=== PATIENT | female | born 1970 | race Caucasian/White ===

== ENCOUNTER 2024-07-16 07:36 | Emergency (ER) | payer OTHER, SELFPAY ==
[2024-07-16 07:42] VITALS: BP 121/84; PULSE 91; TEMP 36.6; O2SAT 100; BMI 23.8
[2024-07-16] MEDS: 0.9 % SODIUM CHLORIDE 1,000 ML 1000 ML IV (08:04)
[2024-07-16] MEDS: KETOROLAC TROMETHAMINE 30 MG/ML VIAL IVP (08:05)
[2024-07-16] MEDS: ONDANSETRON PF 4 MG/2 ML VIAL IV (08:05)
[2024-07-16 08:07] LABS: Basophils Percent Auto 0.6 % (0.2-2.0); Eosinophils Absolute Auto 0.1 10^3/uL (0.0-0.7); Eosinophils Percent Auto 1.9 % (0.9-7.0); Hematocrit 40.6 % (36.0-48.0); Hemoglobin 13.8 g/dL (12.0-16.0); Lymphocytes Absolute Auto 2.3 10^3/uL (1.2-3.8); Lymphocytes Percent Auto 47.8 % (20.5-60.0); Mean Corpuscular Hemoglobin 30.7 pg (26.7-34.0); Mean Corpuscular Volume 90.2 fL (81.0-99.0); Mean Platelet Volume 9.7 fL (9.5-13.5); Monocytes Absolute Auto 0.4 10^3/uL (0.3-0.8); Monocytes Percent Auto 9.3 % (1.7-12.0); Neutrophils Absolute Auto 1.9 10^3/uL (1.4-6.5); Neutrophils Percent Auto 40.4 % (43.0-75.0); Platelet Count 227 10^3/uL (150-450); Red Cell Distribution Width 12.1 % (11.0-15.0); White Blood Count 4.7 10^3/uL (4.0-11.0)
[2024-07-16] MEDS: IPRATROPIUM/ALBUTEROL SULFATE 3 ML AMPUL.NEB IH (08:15)
[2024-07-16 08:28] LABS: Alanine Aminotransferase 17 U/L (14-59); Albumin Level 3.5 g/dL (3.4-5.0); Alkaline Phosphatase 80 U/L (46-116); Aspartate Amino Transferase 15 U/L (15-37); BUN Creatinine Ratio 21.8; Bilirubin Total 0.2 mg/dL (0.2-1.0); Calcium 9.1 mg/dL (8.5-10.1); Chloride 105 mmol/L (98-107); Estimated GFR (African America >60 (>=60 mL/min/1.73m^2); Estimated GFR (Non-African Ame >60 (>=60 mL/min/1.73m^2); Globulin 3.5 g/dL; Glucose 77 mg/dL (74-106); Sodium 140 mmol/L (136-145)
--- NOTE | 2024-07-16 08:32 | ED.GENADUL1 ---
HPI HPI - General Adult General Chief complaint: Shortness of Breath/Dyspnea Stated complaint: NAUSEA, ACHES Time Seen by Provider: 07/16/24 07:38 Source: patient Mode of arrival: walk-in Limitations: no limitations History of Present Illness HPI narrative: Patient is to ed for complaints of not feeling well. Patient states her roommate was recently diagnosed with COVID. She started feeling bad in the middle of the night. She complains of hot and chills, shortness of breath and cough. Patient also complains of generalized stomach pain. She feels short of breath. She is not hypoxic she is not febrile here. She is not in any respiratory distress. Patient states a couple of months ago she was diagnosed with pneumonia and she was concerned that it could be back. Patient states also a couple months ago when she was in the hospital they found kidney stones and she was concerned about her kidney stone pain. She does not have any flank pain at this time. Patient states she just moved to the area so she does not have a urologist to follow-up with about the kidney stones. Patient is alert and oriented resting comfortably in the bed. Related Data Previous Rx's ?Medication ?Instructions ?Recorded albuterol sulfate 90 mcg/actuation 1 inh inhalation Q6H PRN shortness 07/16/24 aerosol inhaler of breath or wheezing #8.5 grams nirmatrelvir 300 mg (150 mg See Rx Instructions PO .COMPLEX 07/16/24 x2)-ritonavir 100 mg tablet,dose #30 ea pack (Paxlovid) Allergies Allergy/AdvReac Type Severity Reaction Status Date / Time Opioids - Morphine Analogues AdvReac Severe Rash Verified 07/16/24 07:41 Opioid HPI Opioid Management Most Recent Opioid Data: No Data to Display Review of Systems ROS Status of ROS 10 or more systems reviewed and unremarkable except as noted in history and below PFSH PFSH Social History Little interest or pleasure in doing things: not at all Feeling down, depressed, or hopeless: not at all Exam Narrative Exam Narrative: Time Seen: [] Vital Signs: [Per nurse's notes.] General: [Alert] Skin: [Warm, dry, no rash.] Head: [Normocephalic, atraumatic.] Neck: [Supple, trachea midline.] Eye: [Pupils are equal, round and reactive to light, extraocular movements are intact, normal conjunctiva.] Ears, nose, mouth and throat: oral mucosa moist. Cardiovascular: [Regular rate and rhythm, no murmur.] Respiratory: [Lungs are clear to auscultation, respirations are non-labored, breath sounds are equal.] Chest wall: [No tenderness, no deformity.] Gastrointestinal: [Soft, nontender, non distended, normal bowel sounds.] MSK: 5 out of 5 muscle strength x 4 extremities no calf pain or edema Lymphatics: [No lymphadenopathy.] Psychiatric: [Cooperative, appropriate mood & affect.] Neurological: [Alert and oriented to person, place, time, and situation, no focal neurological deficit observed.] Constitutional Vital Signs, click to edit/add: Last Vital Signs Temp 97.8 F 07/16/24 07:42 Pulse 91 H 07/16/24 07:42 Resp 18 07/16/24 07:42 BP 121/84 07/16/24 07:42 Pulse Ox 100 07/16/24 07:42 O2 Del Method Room Air 07/16/24 07:42 Course Vital Signs Vital signs: Vital Signs Temperature 97.8 F 07/16/24 07:42 Pulse Rate 91 H 07/16/24 07:42 Respiratory Rate 18 07/16/24 07:42 Blood Pressure 121/84 07/16/24 07:42 Pulse Oximetry 100 07/16/24 07:42 Oxygen Delivery Method Room Air 07/16/24 07:42 Temperature 97.8 F 07/16/24 07:42 Pulse Rate 91 H 07/16/24 07:42 Respiratory Rate 18 07/16/24 07:42 Blood Pressure 121/84 07/16/24 07:42 Pulse Oximetry 100 07/16/24 07:42 Oxygen Delivery Method Room Air 07/16/24 07:42 Medical Decision Making MDM Narrative Medical decision making narrative: Patient's labs are negative for acute findings. Given her symptoms most likely she has COVID. Take Paxlovid to help her symptoms. Tylenol Motrin at home. She was referred to urology concerning her kidney stones. Return to ED if worsening symptoms shortness of breath or further concerns. She was also given an albuterol inhaler for home patient comfortable care plan for home. Differential Diagnosis Differential Diagnosis: Covid pneumonia kidney stones Lab Data Lab results reviewed: Yes I reviewed the patient's lab results Labs: Lab Results 07/16/24 07/16/24 Range/Units 08:00 09:00 WBC 4.7 (4.0-11.0) 10^3/uL RBC 4.50 (4.20-5.40) 10^6/uL Hgb 13.8 (12.0-16.0) g/dL Hct 40.6 (36.0-48.0) % MCV 90.2 (81.0-99.0) fL MCH 30.7 (26.7-34.0) pg MCHC 34.0 (29.9-35.2) g/dL RDW 12.1 (11.0-15.0) % Plt Count 227 (150-450) 10^3/uL MPV 9.7 (9.5-13.5) fL Neut % (Auto) 40.4 L (43.0-75.0) % Lymph % (Auto) 47.8 (20.5-60.0) % [place] % (Auto) 9.3 (1.7-12.0) % Eos % (Auto) 1.9 (0.9-7.0) % Baso % (Auto) 0.6 (0.2-2.0) % Neut # (Auto) 1.9 (1.4-6.5) 10^3/uL Lymph # (Auto) 2.3 (1.2-3.8) 10^3/uL [place] # (Auto) 0.4 (0.3-0.8) 10^3/uL Eos # (Auto) 0.1 (0.0-0.7) 10^3/uL Baso # (Auto) 0.0 (0.0-0.1) 10^3/uL Abs Immat Gran (auto) 0.00 (0.00-0.03) 10^3/uL Imm/Tot Granulo (auto) 0.0 (0.0-0.5) % Sodium 140 (136-145) mmol/L Potassium 4.0 (3.5-5.1) mmol/L Chloride 105 (98-107) mmol/L Carbon Dioxide 27.0 (21.0-32.0) mmol/L Anion Gap 12.0 BUN 17.0 (7.0-18.0) mg/dL Creatinine 0.78 (0.55-1.02) mg/dL Est GFR ( Amer) >60 (>=60 mL/min/1.73m^2) Est GFR (Non-Af Amer) >60 (>=60 mL/min/1.73m^2) BUN/Creatinine Ratio 21.8 Glucose 77 (74-106) mg/dL Calcium 9.1 (8.5-10.1) mg/dL Total Bilirubin 0.2 (0.2-1.0) mg/dL AST 15 (15-37) U/L ALT 17 (14-59) U/L Alkaline Phosphatase 80 (46-116) U/L Total Protein 7.0 (6.4-8.2) g/dL Albumin 3.5 (3.4-5.0) g/dL Globulin 3.5 g/dL Albumin/Globulin Ratio 1.0 Urine Color Lt. yellow (YELLOW) Urine Clarity Clear (CLEAR) Urine pH 5.5 (5.0-9.0) Ur Specific [place] 1.015 (1.005-1.025) Urine Protein Negative (NEG/TRACE) mg/dL Urine Glucose (UA) Negative (NEGATIVE) mg/dL Urine Ketones Negative (NEGATIVE) mg/dL Urine Occult Blood Moderate A (NEGATIVE) Urine Nitrite Negative (NEGATIVE) Urine Bilirubin Negative (NEGATIVE) Urine Urobilinogen 0.2 (0.2-1.0) EU/dL Ur Leukocyte Esterase Negative (NEGATIVE) Urine RBC 0-2 (0-2) #/HPF Urine WBC 0-2 A (NONE SEEN) #/HPF Ur Squamous Epith Cells Rare (NONE/RARE) #/LPF Urine Crystals None seen (None Seen) #/HPF Urine Bacteria Trace A (NONE SEEN) #/HPF Urine Casts None seen (NONE SEEN) #/LPF Urine Mucus Trace A (NONE SEEN) Ur Culture Indicated? No Imaging Data Chest x-ray: My impression: No pneumonia on chest x-ray Discharge Plan Discharge Chief Complaint: Shortness of Breath/Dyspnea Clinical Impression: COVID Patient Disposition: Home, Self-Care Time of Disposition Decision: 09:26 Condition: Good Mode of Transportation: Private Vehicle Prescriptions / Home Meds: New Paxlovid 300 mg (150 mg x 2)-100 mg tablets,dose pack See Rx Instructions .ROUTE .COMPLEX Qty: 30 0RF Rx Instructions: take TWO 150 mg tablets of nirmatrelvir with ONE 100 mg tablet of ritonavir twice daily for 5 days albuterol sulfate 90 mcg/actuation HFA aerosol inhaler 1 inh inhalation Q6H PRN (Reason: shortness of breath or wheezing) Qty: 8.5 0RF Print Language: Estonian Instructions: COVID-19 (Coronavirus Disease 2019) (ED) Referrals: Physician,Non-Staff, [Primary Care Provider] - 1 week Forrest Jo MD [Physician] - 1 week Discharge Date/Time: 07/16/24 09:42
[2024-07-16 09:07] LABS: Bilirubin Urine NEGATIVE (NEGATIVE); Blood Urine MODERATE (NEGATIVE); Clarity Urine CLEAR (CLEAR); Color Urine LT. YELLOW (YELLOW); Glucose Urine UA NEGATIVE (NEGATIVE); Ketones Urine NEGATIVE (NEGATIVE); Leukocyte Esterase Urine NEGATIVE (NEGATIVE); Nitrite Urine NEGATIVE (NEGATIVE); Protein Urine NEGATIVE (NEG/TRACE); Specific Gravity Urine 1.015 (1.005-1.025); Urobilinogen Urine 0.2 EU/dL (0.2-1.0); pH Urine 5.5 (5.0-9.0)
[2024-07-16 09:08] LABS: Urine Microscopic Indicated YES
[2024-07-16 09:16] LABS: Bacteria Urine TRACE #/HPF (NONE SEEN); Cast Seen? NONE SEEN #/LPF (NONE SEEN); Crystals Seen? None Seen #/HPF (None Seen); RBC Urine 0-2 #/HPF (0-2); Squamous Epithelial Cell Urine RARE #/LPF (NONE/RARE); WBC Urine 0-2 #/HPF (NONE SEEN)
[2024-07-16 09:17] LABS: Mucus Urine TRACE (NONE SEEN); Urine Culture Indicated NO
== END 2024-07-16 09:42 | disposition home or self-care (01) ==
PROVIDERS: Emergency Provider Emergency Medicine
DX: U07.1 COVID-19 (principal); Z87.01 Personal history of pneumonia (recurrent); Z87.442 Personal history of urinary calculi
CPT/HCPCS: 36415; 71046; 80053; 81001; 85025; 94640; 96374; 96375; 99284; J1885; J2405